=== PATIENT | female | born 1965 | race Caucasian/White ===

== ENCOUNTER 2020-08-03 19:37 | Inpatient (IN) | payer OTHER ==
[2020-08-03] MEDS ORDERED: ONDANSETRON 4 MG/2 ML VIAL IV PRN (21:41)
[2020-08-03] MEDS ORDERED: TRAMADOL HCL 50 MG TAB PO PRN (21:41)
[2020-08-03] MEDS ORDERED: ACETAMINOPHEN 500 MG TAB PO PRN (21:41)
[2020-08-03] MEDS ORDERED: SUMATRIPTAN SUCCI 50 MG TAB PO PRN (21:41)
--- NOTE | 2020-08-03 21:54 | P.HP ---
Certification for Inpatient Patient admitted to: Inpatient With expected LOS: >2 Midnights Patient will require the following post-hospital care: None Practitioner: I am a practitioner with admitting privileges, knowledge of patient current condition, hospital course, and medical plan of care. Services: Services provided to patient in accordance with Admission requirements found in Title 42 Section 412.3 of the Code of Federal Regulations Patient History Date of Service: 08/03/20 Primary Care Provider: Dr. Haddad; Oncology-Dr. Prasad Reason for admission: Left upper extremity cellulitis/edema History of Present Illness: 55-year-old female with history of breast cancer status post left breast lumpectomy with lymph node resection, hypothyroidism, depression, and history of migraine headaches. Patient was seen at [facility] due to left upper extremity swelling, erythema, and pain. Patient also reported fever 103. This all started over the last day. It has been getting worse. Erythema has spread circumferentially starting just above the wrist up to an below the deltoid muscle. Patient reported fatigue ov er the last couple of days. She reported some cough, chills and weakness. She also reported some muscle aches. She denied any chest pain, shortness of breath, nausea, vomiting or diarrhea. Patient reports history of left upper extremity cellulitis/lymphangitis in the past. Her last episode was about 5 years ago. Patient reports history of breast cancer currently in remission with prior lumpectomy and lymph node resection about 5 years ago. The patient was seen and evaluated at the [facility] facility. White count 8.1, hemoglobin 12.8. EKG unremarkable. Chest x-ray unremarkable. COVID test negative. Blood cultures obtained. Patient given vancomycin and Zosyn. Patient transfer to our facility to further address and treat her left upper extremity lymphangitis and cellulitis. When the patient arrived patient appeared comfortable. at bedside. Allergies No Known Allergies Allergy (Unverified 09/02/14 14:28) Home medications list reviewed: Yes Home Medications: Levothyroxine [Synthroid*] 1 tab PO DAILY 09/02/14 Oseltamivir [Tamiflu*] 1 cap PO DAILY 09/02/14 Sulfamethoxazole/Trimethoprim [Bactrim Ds Tablet] 1 tab PO MO,FR 09/02/14 - Past Medical/Surgical History Diabetic: No -: Hypothyroidism -: History of left breast cancer with lumpectomy and lymph node resection -: Migraine headaches -: Rosacea -: ADD -: Depression -: Cholecystectomy -: Left breast lumpectomy -: Left axillary and lymph node resection Psychosocial/ Personal History: Patient - Family History Family History: Reviewed- Non-Contributory - Social History Smoking Status: Never smoker Alcohol use: Yes Caffeine use: Yes Place of Residence: Home Review of Systems General: Fever, Chills, Weakness, Malaise, As per HPI Eyes: Unremarkable ENT: Unremarkable Respiratory: Unremarkable Cardiovascular: Unremarkable Gastrointestinal: Unremarkable Genitourinary: Unremarkable Musculoskeletal: Arm Pain, As per HPI Integumentary: As per HPI Neurological: Unremarkable Lymphatics: Unremarkable Physical Examination - Physical Exam General: Alert, In no apparent distress, Oriented x3, Cooperative HEENT: Atraumatic, Normocephalic, PERRLA, Mucous membr. moist/pink Neck: Supple Respiratory: Clear to auscultation bilaterally, Normal air movement Cardiovascular: Normal pulses, Regular rate/rhythm Gastrointestinal: Normal bowel sounds, Soft and benign, Non-distended, No tenderness, No masses, No rebound, No guarding Musculoskeletal: Tenderness (Tender to the left upper extremity to the elbow and forearm region.) Integumentary: Other (Erythema noted to the left upper extremity circumferentially just before wrist area up through near deltoid region. Significant edema mainly to the forearm and elbow all region. Erythema noted with pain.) Neurological: Normal speech, Normal strength at 5/5 x4 extr, Normal tone, Normal affect Assessment and Plan - Plan Impression: Left upper extremity cellulitis/lymphangitis with history of left breast lumpectomy with axillary lymph node dissection in the distant past Hypothyroidism Depression Migraine headaches Plan: Left upper extremity cellulitis/lymphangitis with history of left breast lumpectomy with axillary lymph node dissection in the distant past: Patient was a transfer from [facility]. Will continue with IV antibiotic therapy. Will continue with IV vancomycin and cefepime for broad coverage. Patient with histo ry of left upper extremity cellulitis lymphangitis. Blood cultures have been obtained at the ER facility. We need to monitor results. Will elevate upper extremity when patient lying or sitting. Will alyssa area of erythema so that this can be followed closely. Anticipate improvement over the next 72 hr. Will monitor electrolytes. Electrolyte protocol in place. Will provide DVT prophylaxis-Lovenox. Will continue with cancer maintenance medication. Will provide medication for pain including tramadol, hydrocodone. Will provide medication for fever. I will turn the service over to the hospitalist service tomorrow. They will continue with the plan of care. Hypothyroidism: Restart home medication-levothyroxine 88 mcg daily. Depression: Will need to obtain and restart Effexor. Migraine headaches: Will provide medication as needed. Discharge Plan: Home Plan to discharge in: 72 Hours - Advance Directives Does patient have a Living Will: No Does patient have a Durable POA for Healthcare: No - Code Status/Comfort Care Code Status Assessed: Yes (Patient is full code) Time Spent Managing Pts Care (In Minutes): 55
[2020-08-03 21:58] VITALS: BMI 28.4
[2020-08-03] MEDS: NA CHLORIDE 0.9% 1,000 ML IV SCH (22:56)
[2020-08-03] MEDS: CEFEPIME/SWI 1gm 10 ML IV SCH (23:00)
[2020-08-04] MEDS: HYDROCODONE/APAP 7.5/325 MG TAB PO PRN ×2 (02:36→10:26)
--- OUTSIDE RECORDS SUMMARY | 2020-08-04 05:32 | XMS REPORT | Continuity of Care Document ---
:1965 Author Organization [facility] t Address [facility] [place] [address] Care Team Providers Name Role Phone Unavailable Unavailable Unavailable Payers Payer Name Policy Type Policy Number Effective Date Expiration Date S ource Problems This patient has no known problems. Allergies, Adverse Reactions, Alerts Allergy Allergy Status Severity Reaction(s) Onset Inactive Treating Comm ents Source Name Type Date Date Clinician [place] Active [place] [facility] [address] [facility]: [facility] [place] Medications This patient has no known medications. Procedures This patient has no known procedures. Results This patient has no known results.
[2020-08-04 05:54] LABS: Absolute Lymphocytes (CBC) 0.9 K/uL (0.7-4.9); Basophils % 0.2 % (0-1.3); Hematocrit 35.8 % (36.0-45.0); Lymphocytes % 17.7 % (15.3-44.8); MPV 8.3 fL (7.6-11.3); RBC Red Blood Cell Count 3.79 M/uL (3.86-4.86)
[2020-08-04 06:00] LABS: BUN Blood Urea Nitrogen 15 mg/dL (7-18); Bicarbonate 26 mmol/L (21-32); Glucose Level 100 mg/dL (74-106); Magnesium 2.2 mg/dL (1.8-2.4); Potassium 3.9 mmol/L (3.5-5.1); Sodium Level 141 mmol/L (136-145)
[2020-08-04] MEDS: IBUPROFEN 400 MG TAB PO PRN ×2 (06:09→18:35)
[2020-08-04] MEDS ORDERED: PANTOPRAZOLE 40MG TABLET PO SCH (06:30)
[2020-08-04] MEDS ORDERED: LEVOTHYROXINE SOD 0.125 MG TAB PO SCH (06:30)
[2020-08-04] MEDS ORDERED: LEVOTHYROXINE SOD 0.088 MG TAB PO SCH (06:30)
[2020-08-04] MEDS ORDERED: VANCOMYCIN 1 GM in NA CHLORIDE 0.9% 500 ML IVPB SCH (09:00)
[2020-08-04] MEDS ORDERED: CEFEPIME 1 GM/VIAL IV SCH (09:00)
[2020-08-04] MEDS ORDERED: POTASSIUM CL SA 10 MEQ TAB PO ONE (09:00)
[2020-08-04] MEDS ORDERED: ANASTROZOLE 1 MG TAB PO SCH (09:00)
--- NOTE | 2020-08-04 09:11 | P.PN ---
Subjective Date of Service: 08/04/20 Primary Care Provider: Dr. Haddad; Oncology-Dr. Prasad Chief Complaint: Left upper extremity cellulitis/edema Subjective: Improving (No acute events Overnite. Patient is afebrile) Physical Examination - Vital Signs Temperature: 97.9 F Blood Pressure: 129/64 Pulse: 91 Respirations: 18 Pulse Ox (%): 97 - Physical Exam General: Alert, In no apparent distress, Cooperative HEENT: Atraumatic, Normocephalic, EOMI Neck: Supple Respiratory: Clear to auscultation bilaterally, Normal air movement Cardiovascular: Regular rate/rhythm, Normal S1 S2, Edema Gastrointestinal: Normal bowel sounds, Soft and benign, Non-distended, No tenderness Musculoskeletal: Swelling, Erythema, Tenderness, Warmth, Other (Left extremity edema at this, erythematous and tender to palpation.) Neurological: Normal speech, Normal tone, Normal affect - Studies Laboratory Data (last 24 hrs) 08/04/20 05:23: Sodium 141, Potassium 3.9, BUN 15, Creatinine 0.67, Glucose 100, Magnesium 2.2 08/04/20 05:23: WBC 4.8, Hgb 12.1, Hct 35.8 L, Plt Count 140 L Assessment & Plan - Problems (Diagnosis) (1) Cellulitis of upper limb Current Visit: Yes Status: Acute (2) Edema of upper extremity Current Visit: No Status: Acute (3) Lymphedema of arm Current Visit: No Status: Acute Physician Review Additional Text: Patient is a 55-year-old female with unknown past medical history of breast cancer status post lumpectomy followed by radiation chemotherapy 11 years ago, axillary lymph node dissection complicated by and left upper extremity lymphedema. She is currently cancer free. She is admitted with left lower extremity nonpurulent cellulitis. Shows placed on vancomycin and cefepime on admission. Her cellulitis is only mildly receding Left arm cellulitis Hx of breast cancer Hx of LUE lymphedema PLAN: Continue current management vancomycin and cefepime If noted improvement tomorrow, discharged with for clindamycin Otherwise, continue supportive care
--- NOTE | 2020-08-04 09:55 | RAD REPORT ---
EXAM DESCRIPTION: US - UPPER EXTREMITY VENOUS UNILATE - 08/04/2020 9:45 am CLINICAL HISTORY: Left upper extremity cellulitis/lymphangitis Left arm pain and swelling. COMPARISON: No comparisons FINDINGS: Left upper extremity venous system was interrogated with Doppler technique. Normal flow, c ompressibility and augmentation was noted. There is no DVT present. IMPRESSION: No evidence of left upper extremity deep venous thrombosis.
[2020-08-04] MEDS: NA CHLORIDE 0.9% 1,000 ML IV SCH ×3 (10:19→20:57)
[2020-08-04] MEDS: CEFEPIME/SWI 1gm 10 ML IV SCH ×2 (10:20→20:57)
[2020-08-04] MEDS: ENOXAPARIN 40 MG/0.4 ML SQ SCH (10:20)
[2020-08-04] MEDS: VANCOMYCIN 1.5 GM in NA CHLORIDE 0.9% 500 ML IVPB SCH (15:42)
[2020-08-05 06:18] LABS: Absolute Lymphocytes (CBC) 0.9 K/uL (0.7-4.9); Basophils % 0.4 % (0-1.3); Hematocrit 35.3 % (36.0-45.0); Lymphocytes % 19.3 % (15.3-44.8); MPV 8.2 fL (7.6-11.3); RBC Red Blood Cell Count 3.71 M/uL (3.86-4.86)
[2020-08-05] MEDS ORDERED: LEVOTHYROXINE SOD 0.088 MG TAB PO SCH ×2 (06:30)
[2020-08-05 06:32] LABS: BUN Blood Urea Nitrogen 6 mg/dL (7-18); Bicarbonate 26 mmol/L (21-32); Glucose Level 85 mg/dL (74-106); Magnesium 2.2 mg/dL (1.8-2.4); Potassium 3.9 mmol/L (3.5-5.1); Sodium Level 142 mmol/L (136-145)
[2020-08-05] MEDS: IBUPROFEN 400 MG TAB PO PRN (06:35)
[2020-08-05] MEDS ORDERED: PANTOPRAZOLE 40MG TABLET PO SCH (07:30)
[2020-08-05] MEDS ORDERED: HYDRALAZINE HCL 20 MG/ML VIAL IV PRN (08:36)
[2020-08-05 08:56] VITALS: O2SAT 97
[2020-08-05] MEDS ORDERED: VENLAFAXINE HCL XR 37.5MG CAP PO SCH (09:00)
[2020-08-05] MEDS ORDERED: ANASTROZOLE 1 MG TAB PO SCH (09:00)
[2020-08-05] MEDS ORDERED: AMLODIPINE 10 MG TAB PO SCH (09:00)
[2020-08-05] MEDS: VANCOMYCIN 1.5 GM in NA CHLORIDE 0.9% 500 ML IVPB SCH (09:03)
[2020-08-05] MEDS: CEFEPIME/SWI 1gm 10 ML IV SCH (09:03)
[2020-08-05] MEDS: ENOXAPARIN 40 MG/0.4 ML SQ SCH (09:04)
--- NOTE | 2020-08-05 10:38 | P.DS ---
Admission Date: 08/03/20 Discharge Date: 08/05/20 Primary Care Provider: Dr. Haddad; Oncology-Dr. Prasad Disposition: ROUTINE DISCHARGE Discharge Condition: GOOD Reason for Admission: Left upper extremity cellulitis/edema - Problems (1) Cellulitis of upper limb Current Visit: Yes Status: Acute (2) Edema of upper extremity Current Visit: No Status: Acute (3) Lymphedema of arm Current Visit: No Status: Acute Brief History of Present Illness: Please refer to H&P Hospital Course: Patient is a 55 year old female with a PMH of breast cancer s/p left lumpectomy, axillary lymph node dissection completed by MAHESH silveira, and XRT and chemotherapy. This occurred 11 years ago. She was admitted with non- purulent cellulitis, which was treated with broad spectrum antibiotics. She received 2 days of IV antibiotics. The redness has significantly receded, and the swelling nearly resolved. She will be discharged on a short course of clindamycin. Patient's discharged delayed by elevated BP. Vital Signs/Physical Exam: Temp Pulse Resp BP Pulse Ox 98.1 F 76 18 146/79 H 95 08/05/20 08:00 08/05/20 09:07 08/05/20 08:00 08/05/20 09:07 08/05/20 08:00 General: Alert, In no apparent distress, Cooperative HEENT: Atraumatic, Normocephalic, EOMI Neck: Supple Respiratory: Clear to auscultation bilaterally, Normal air movement Cardiovascular: No edema, Normal pulses, Regular rate/rhythm, Normal S1 S2 Gastrointestinal: Normal bowel sounds, Non-distended, No tenderness Musculoskeletal: Other (left upper extremity with nearly resolved erythema, edema. Non-tender to palpation ) Neurological: Normal speech, Sensation intact, Normal affect Laboratory Data at Discharge: WBC 4.7 K/uL (4.3-10.9) 08/05/20 05:58 Hgb 11.9 g/dL (12.0-15.0) L 08/05/20 05:58 Hct 35.3 % (36.0-45.0) L 08/05/20 05:58 Plt Count 130 K/uL (152-406) L 08/05/20 05:58 Sodium 142 mmol/L (136-145) 08/05/20 05:58 Potassium 3.9 mmol/L (3.5-5.1) 08/05/20 05:58 BUN 6 mg/dL (7-18) L 08/05/20 05:58 Creatinine 0.58 mg/dL (0.55-1.3) 08/05/20 05:58 Glucose 85 mg/dL (74-106) 08/05/20 05:58 Magnesium 2.2 mg/dL (1.8-2.4) 08/05/20 05:58 Home Medications: Anastrozole 1 mg PO DAILY 08/04/20 Levothyroxine [Synthroid*] 88 mcg PO DAILY 08/04/20 Venlafaxine HCl [Venlafaxine HCl ER] 37.5 mg PO DAILY 08/04/20 Amlodipine [Norvasc*] 10 mg PO DAILY #30 tab 08/05/20 Sumatriptan [Imitrex*] 25 mg PO BID PRN tab 08/05/20 clindamycin HCL [Clindamycin HCl] 450 mg PO TID #45 capsule 08/05/20 New Medications: clindamycin HCL [Clindamycin HCl] 450 mg PO TID #45 capsule Amlodipine [Norvasc*] 10 mg PO DAILY #30 tab Diet: Regular
[2020-08-05 14:34] VITALS: BP 130/81; TEMP 97.8
== END 2020-08-05 12:00 | disposition home or self-care (01) | DRG 603 ==
LOC: 2ND 21:12
PROVIDERS: ADMIT Family Medicine; ATTEND Internal Medicine
DX: L03.114 Cellulitis of left upper limb (principal); E03.9 Hypothyroidism, unspecified; F32.9 Major depressive disorder, single episode, unspecified; G43.909 Migraine, unspecified, not intractable, without status migrainosus; I89.0 Lymphedema, not elsewhere classified; Z90.49 Acquired absence of other specified parts of digestive tract; Z85.3 Personal history of malignant neoplasm of breast; Z79.890 Hormone replacement therapy; Z79.899 Other long term (current) drug therapy; Z90.12 Acquired absence of left breast and nipple
CPT/HCPCS: 36415; 80048; 83735; 85025; 93971; J0692; J1650; J3370; J7030; J7040